=== PATIENT | female | born 2000 | race Caucasian/White ===

== ENCOUNTER 2020-12-23 03:15 | Emergency (ER) | payer OTHER, SELFPAY ==
[2020-12-23] MEDS ORDERED: Ketorolac Tromethamine 30 MG/ML VIAL ONE (04:42)
[2020-12-23] MEDS ORDERED: diphenhydrAMINE 50 MG/ML VIAL ONE (04:42)
[2020-12-23 04:54] LABS: #Basophils 0.1 10x3/uL (0.0-0.2); #Monocytes 0.7 10x3/uL (0.0-1.1); #Neutrophils 10.2 10x3/uL (1.5-8.4); %Basophils 0.4 % (0.0-2.0); %Eosinophils 0.3 % (0.0-6.0); %Lymphocytes 9.6 % (18.0-47.0); %Monocytes 5.8 % (0.0-10.0); %Neutrophils 83.6 % (40.0-75.0); Hemoglobin 13.9 g/dL (12.0-15.5); Mean Corpuscular HGB CONC 35.3 g/dL (32.0-36.0); Mean Corpuscular Hemoglobin 32.8 pg (27.0-33.0); Mean Corpuscular Volume 92.9 fl (81.6-98.3); Platelet Count 260 10x3/uL (150-450); RBC Distribution Width 11.9 % (11.5-14.5); Red Blood Cell (RBC) Count 4.24 10x6/uL (3.90-5.03); White Blood Cell (WBC) Count 12.3 10x3/uL (3.5-10.5)
[2020-12-23] MEDS ORDERED: Prochlorperazine 10 MG/2 ML VIAL IVP SCH (05:00)
[2020-12-23 05:01] LABS: BHCG - Serum Negative (NEGATIVE); Pregs Control Background? CLEAR/WHITE (CLR/WHITE); Pregs Control Bar Appear? YES (CONTROL BAR)
[2020-12-23 05:07] LABS: ALT (SGPT) 14 U/L (8-55); AST (SGOT) 16 U/L (5-34); Albumin 4.7 g/dL (3.5-5.0); Alkaline Phosphatase 66 U/L (40-110); Anion Gap 16 mmol/L (10-20); BUN (Urea Nitrogen) 10 mg/dL (7.0-18.7); Bilirubin, Total 1.9 mg/dL (0.2-1.2); Calc. Creatinine Clearance 0 mL/min (70-130); Calcium 9.8 mg/dL (7.8-10.44); Carbon Dioxide 24 mmol/L (22-29); Chloride 104 mmol/L (98-107); Globulin 2.8 g/dL (2.4-3.5); Glucose 81 mg/dL (70-105); Potassium 4.1 mmol/L (3.5-5.1); Protein, Total 7.5 g/dL (6.0-8.3); Sodium 140 mmol/L (136-145)
[2020-12-23 06:28] LABS: CSF, Glucose 55 mg/dl (40-70); CSF, Protein 44 mg/dL (15-40)
[2020-12-23 06:30] LABS: Color Of CSF Supernatant COLORLESS (Colorless); Tube # 1; Unspun CSF Color COLORLESS (Colorless)
[2020-12-23 06:44] LABS: CSF Source CSF; Clarity Clear (Clear); Tube # 1
[2020-12-23 06:45] LABS: CSF RBC Count - Manual 152 /cu.mm (None Seen); CSF Source CSF; CSF WBC/NonHematics Count-Man 2 /cu.mm (0-5); Clarity Clear (Clear); Tube # 4
[2020-12-23 06:46] LABS: CSF RBC Count - Manual 4 /cu.mm (None Seen); CSF WBC/NonHematics Count-Man 2 /cu.mm (0-5)
== END 2020-12-23 07:01 | disposition home or self-care (01) ==
LOC: CSHERS 03:15
DX: R51.9 Headache, unspecified (principal)
CPT/HCPCS: 62270; 70450; 80053; 82945; 84157; 84703; 85025; 87070; 87205; 89051; 96374; 96375; J0780; J1200; J1885